=== PATIENT | female | born 1980 | race Caucasian/White ===

== ENCOUNTER 2021-03-02 12:39 | Outpatient (CLI) | payer OTHER ==
[2021-03-02 20:19] LABS: % IRON SATURATION 5 % (20-50); IRON 18 ug/dL (28-170); TOTAL IRON BINDING CAPACITY 385 ug/dL (250-450); TRANSFERRIN 275 mg/dL (192-382)
[2021-03-02 20:58] LABS: FOLLICLE STIMULATING HORMONE 8.1 mIU/mL; LUTEINIZING HORMONE 4.42 mIU/mL
[2021-03-04 04:16] LABS: ESTRADIOL 52 pg/mL
[2021-03-04 04:52] LABS: PROGESTERONE <0.5 ng/mL
== END 2021-03-02 12:40 | disposition home or self-care (01) ==
LOC: LAB.S 12:39
PROVIDERS: ATTEND Acupuncturist
DX: N92.6 Irregular menstruation, unspecified (principal); R53.83 Other fatigue; M79.10 Myalgia, unspecified site; D50.9 Iron deficiency anemia, unspecified
CPT/HCPCS: 36415; 82670; 83001; 83002; 83540; 84144; 84466

== ENCOUNTER 2021-03-13 08:00 | Outpatient (CLI) | payer OTHER ==
--- NOTE | 2021-03-13 15:30 | XRAY Report ---
PROCEDURE: Finger(s) RT INDICATIONS: PAIN IN FINGER OF RIGHT HAND TECHNIQUE: AP hand, 2 views of the third finger(s) acquired. COMPARISON: None FINDINGS: Bones: No fractures or dislocations. No suspicious bony lesions. Soft tissues: No suspicious soft tissue calcifications. IMPRESSION: No gross third finger fracture or dislocation. No finding to explain patient's symptoms. Reviewed by: Shahab Darden MD on 03/13/2021 3:29 PM PDT Approved by: Shahab Darden MD on 03/13/2021 3:29 PM PDT Station ID: [id number]
== END 2021-03-13 23:59 | disposition home or self-care (01) ==
LOC: DI.S 08:00
PROVIDERS: ATTEND Physician Assistant Medical
DX: M79.644 Pain in right finger(s) (principal)